=== PATIENT | female | born 2000 | race Hispanic/Latino ===

== ENCOUNTER 2019-06-04 19:17 | Emergency (ER) | payer OTHER ==
[~2019-06-04] VITALS: Ht 149.9 cm; Wt 53.6 kg
[2019-06-04] MEDS ORDERED: ACETAMINOPHEN 325 MG TAB PO ONE (19:45)
--- NOTE | 2019-06-04 20:31 | REPVR ---
PROCEDURE INFORMATION: Exam: US Pelvis Complete, Transabdominal Exam date and time: 06/04/2019 8:18 PM Age: 18 years old Clinical indication: Pelvic pain; Additional info: Left adenexa pain TECHNIQUE: Imaging protocol: Real-time transabdominal pelvic ultrasound with image documentation. Complete exam. COMPARISON: No relevant prior studies available. FINDINGS: Uterus/cervix: Uterus is normal. Endometrial stripe is normal. Right adnexa: The right ovary measures 2.8 x 1.8 x 3.0 cm. Normal vascular flow. Left adnexa: Left ovary measures 3.4 x 2.4 x 2.9 cm. Normal vascular flow. Free fluid: No free fluid. Bladder: Normal. Other findings: Uterus is anteverted. IMPRESSION: No acute abnormality. Electronically signed by: Amaury Darnell On 06/04/2019 20:31:35 PM
[2019-06-04 21:08] VITALS: BP 101/58
== END 2019-06-04 21:09 | disposition home or self-care (01) ==
LOC: M ED 19:17
DX: N94.6 Dysmenorrhea, unspecified (principal)

== ENCOUNTER 2022-05-12 09:53 | Emergency (ER) | payer OTHER ==
[~2022-05-12] VITALS: Ht 149.9 cm; Wt 52.2 kg
[2022-05-12 09:53] VITALS: BP 118/58
[2022-05-12] MEDS ORDERED: AMOX500C PO ×2 (10:28→10:42)
== END 2022-05-12 10:44 | disposition home or self-care (01) ==
LOC: M ED 09:53
DX: J02.0 Streptococcal pharyngitis (principal); F17.200 Nicotine dependence, unspecified, uncomplicated; Z79.2 Long term (current) use of antibiotics